=== PATIENT | male | born 1950 | race Hispanic/Latino ===

== ENCOUNTER → 2018-05-02 | Outpatient (CLI) | payer OTHER ==
[~2018-05-02] MED LIST: GADODIAMIDE 10 MMOL/20 ML ML IV ONE
== END | disposition home or self-care (01) ==
LOC: RAH 08:35
PROVIDERS: ATTEND Internal Medicine Gastroenterology
DX: N28.1 Cyst of kidney, acquired (principal); K76.89 Other specified diseases of liver; D73.4 Cyst of spleen
CPT/HCPCS: 74183; A9579

== ENCOUNTER → 2018-12-29 | Outpatient (CLI) | payer OTHER | END | disposition home or self-care (01) | LOC: RAH 08:46 → EDSTATUS 09:00 | PROVIDERS: ATTEND Internal Medicine Cardiovascular Disease | DX: I25.9 Chronic ischemic heart disease, unspecified (principal) | CPT/HCPCS: 78452; 93015; A9500 ×2 ==

== ENCOUNTER 2024-03-24 06:03 | Day surgery (SDC) | payer OTHER ==
[2024-03-24] VITALS (10 sets, daily range): BP systolic 108–132; BP diastolic 71–82; PULSE 64–83; RESP 15–18; TEMP 97.1–98
[~2024-03-24] VITALS: Ht 177.8 cm; Wt 88.5 kg
[~2024-03-24 06:03] MED LIST changes: +ALLO100T PO; -GADODIAMIDE 10 MMOL/20 ML ML IV ONE; +OMEP20CA12 PO
[2024-03-24] MEDS: 0.9%NACL 1000ML 1,000 ML IV ONE (06:30)
[2024-03-24] MEDS ORDERED: proPOFol 10 MG/ML 20ML VIAL IV ONE (07:47)
== END 2024-03-24 09:00 | disposition home or self-care (01) ==
LOC: ENDO 06:03 → DAH 06:03 → ENDO 09:00
PROVIDERS: ATTEND Internal Medicine
DX: K22.2 Esophageal obstruction (principal); K29.50 Unspecified chronic gastritis without bleeding; K31.89 Other diseases of stomach and duodenum; K21.00 Gastro-esophageal reflux disease with esophagitis, without bleeding; K21.9 Gastro-esophageal reflux disease without esophagitis; K57.30 Diverticulosis of large intestine without perforation or abscess without bleeding; R93.2 Abnormal findings on diagnostic imaging of liver and biliary tract; K76.0 Fatty (change of) liver, not elsewhere classified; J44.9 Chronic obstructive pulmonary disease, unspecified; M10.9 Gout, unspecified; Z90.49 Acquired absence of other specified parts of digestive tract; Z79.899 Other long term (current) drug therapy
CPT/HCPCS: 43249; 43239; J7030 ×2; J2704; C1726; A4620; A7002; J3490